=== PATIENT | male | born 1995 | race African-American/Black ===

== ENCOUNTER 2022-09-04 07:42 | Emergency (ER) | payer OTHER ==
[2022-09-04 08:03] VITALS: BP 135/74; PULSE 79; RESP 18; TEMP 98.2; BMI 35.1
[2022-09-04] MEDS ORDERED: ACETAMINOPHEN 325 MG TABLET (FP) PO ONE (09:05)
[2022-09-04] MEDS ORDERED: METHOCARBAMOL 500 MG TABLET PO ONE (09:06)
[2022-09-04] MEDS ORDERED: KETOROLAC TROMETHAMINE 15 MG/ML VIAL IM ONE (09:06)
[2022-09-04] MEDS ORDERED: LIDOCAINE 5% TOPICAL PATCH TP ONE (09:09)
[2022-09-04] MEDS ORDERED: LIDOCAINE 5% TOPICAL PATCH ONE (09:18)
[2022-09-04] MEDS ORDERED: METHOCARBAMOL 500 MG TABLET ONE (09:19)
[2022-09-04] MEDS ORDERED: KETOROLAC TROMETHAMINE 15 MG/ML VIAL ONE (09:19)
[2022-09-04] MEDS ORDERED: ACETAMINOPHEN 325 MG TABLET (FP) ONE (09:19)
[2022-09-04] MEDS ORDERED: LIDOCAINE PATCH REMOVAL MC ONE (22:00)
== END 2022-09-04 12:40 | disposition home or self-care (01) ==
LOC: JER 07:42
PROC: 3E023GC Introduction of Other Therapeutic Substance into Muscle, Percutaneous Approach (ICD-10-PCS; principal; 2022-09-04)
DX: M54.50 Low back pain, unspecified (principal)
CPT/HCPCS: 96372; 99284-25